=== PATIENT | female | born 1950 | race Caucasian/White ===

== ENCOUNTER → 2018-04-07 09:09 | Outpatient (CLI) | payer OTHER, SELFPAY ==
[2018-04-07 09:52] LABS: Add Manual Diff / Slide Review NO; Basophils Percent Auto 1.8 % (0-2); Eosinophils Percent Auto 3.3 % (2-4); Hematocrit 38.6 % (36-46); Lymphocytes Percent Auto 46.1 % (25-40); Mean Corpuscular HGB Conc 33.6 % (30-36); Mean Corpuscular Hemoglobin 30.6 PG (26-34); Monocytes Percent Auto 11.8 % (3-14); Neutrophils Absolute Auto 1400 /uL (3000-5900); Platelet Count 246 X10^3/uL (150-400); Red Blood Cell Count 4.24 X10^6/uL (4.0-5.2); Red Cell Distribution Width 13.4 % (11.6-14.8); White Blood Cell Count 3.7 X10^3/uL (4.5-11.0)
[2018-04-07 10:44] LABS: Alanine Aminotransferase 31 IU/L (9-52); Albumin 4.5 g/dL (3.5-5.0); Albumin Globulin Ratio 1.8 (1.0-2.8); Alkaline Phosphatase 64 U/L (38-126); Aspartate Aminotransferase 28 IU/L (14-36); Bilirubin Total 0.8 mg/dL (0.2-1.3); Blood Urea Nitrogen 21 mg/dL (7-17); Calcium 9.7 mg/dL (8.4-10.2); Carbon Dioxide 27 mmol/L (22-32); Chloride 104 mmol/L (98-107); Cholesterol 248 mg/dL (140-199); Estimated Glomerular Filt Rate > 60.0 mL/min (>60); Globulin 2.5 g/dL (1.7-4.1); Glucose 105 mg/dL (80-110); HDL Cholesterol 76 mg/dL (40-60); HEMOLYSIS < 15 (0-50); LDL Cholesterol Calculated 142 mg/dL (<100); Potassium 4.7 mmol/L (3.4-5.1); Sodium 141 mmol/L (137-145); Triglycerides 152 mg/dL (35-150)
[2018-04-07 11:06] LABS: Thyroid Stimulating Hormone 0.99 uIU/mL (0.47-4.68)
== END ==
PROVIDERS: PCP Internal Medicine; Visit Provider Internal Medicine
DX: E78.5 Hyperlipidemia, unspecified (principal); Z82.49 Family history of ischemic heart disease and other diseases of the circulatory system; Z86.39 Personal history of other endocrine, nutritional and metabolic disease
CPT/HCPCS: 36415; 80053; 80061; 84443; 85025

== ENCOUNTER → 2018-04-15 13:50 | Outpatient (CLI) | payer OTHER, SELFPAY | PROVIDERS: PCP Internal Medicine; Visit Provider Internal Medicine | DX: Z13.820 Encounter for screening for osteoporosis (principal); M85.852 Other specified disorders of bone density and structure, left thigh; Z78.0 Asymptomatic menopausal state | CPT/HCPCS: 77080 ==

== ENCOUNTER → 2018-09-05 10:49 | Outpatient (CLI) | payer OTHER, SELFPAY ==
--- NOTE | 2018-09-05 | DI.MG.S_ITS ---
BILATERAL DIGITAL SCREENING MAMMOGRAM 3D/2D WITH CAD: 09/05/2018 CLINICAL: Routine screening. Family history of breast cancer. Comparison is made to exams dated: 07/23/2017 mammogram - [facility], 08/19/2012 mammogram, and 08/26/2009 mammogram - [facility]. There are scattered fibroglandular elements in both breasts. Current study was also evaluated with a Computer Aided Detection (CAD) system. No significant masses, calcifications, or other findings are seen in either breast. There has been no significant interval change. IMPRESSION: NEGATIVE There is no mammographic evidence of malignancy. A 1 year screening mammogram is recommended. This exam was interpreted at Station ID: [id number]. NOTE: For mammograms, a report in lay terms will be sent to the patient. Approximately 15% of breast malignancies will not be visualized mammographically. In the management of a palpable breast mass, a negative mammogram must not discourage biopsy of a clinically suspicious lesion. Electronically Signed By: Loli loyola/aby:09/05/2018 11:27:17 letter sent: Normal Exam ACR BI-RADS Category 1: Negative 3341F
== END ==
PROVIDERS: PCP Internal Medicine; Visit Provider Internal Medicine
DX: Z12.31 Encounter for screening mammogram for malignant neoplasm of breast (principal); Z80.3 Family history of malignant neoplasm of breast
CPT/HCPCS: 77063; 77067

== ENCOUNTER → 2019-12-12 08:13 | Outpatient (CLI) | payer OTHER, SELFPAY ==
--- NOTE | 2019-12-12 | DI.MG.S_ITS ---
BILATERAL DIGITAL SCREENING MAMMOGRAM 3D/2D WITH CAD: 12/12/2019 CLINICAL: Routine screening. Family history of breast cancer. Comparison is made to exams dated: 09/05/2018 mammogram, 07/23/2017 mammogram - [facility], and 08/19/2012 mammogram - [facility]. There are scattered fibroglandular elements in both breasts. Current study was also evaluated with a Computer Aided Detection (CAD) system. No significant masses, calcifications, or other findings are seen in either breast. There has been no significant interval change. IMPRESSION: NEGATIVE There is no mammographic evidence of malignancy. A 1 year screening mammogram is recommended. This exam was interpreted at Station ID: [id number]. NOTE: For mammograms, a report in lay terms will be sent to the patient. Approximately 15% of breast malignancies will not be visualized mammographically. In the management of a palpable breast mass, a negative mammogram must not discourage biopsy of a clinically suspicious lesion. Electronically Signed By: Heron crain/aby:12/14/2019 07:20:15 letter sent: Normal Exam ACR BI-RADS Category 1: Negative 3341F
== END ==
PROVIDERS: PCP Internal Medicine; Referring Provider Internal Medicine; Visit Provider Internal Medicine
DX: Z12.31 Encounter for screening mammogram for malignant neoplasm of breast (principal); Z80.3 Family history of malignant neoplasm of breast
CPT/HCPCS: 77063; 77067

== ENCOUNTER → 2020-07-13 07:55 | Outpatient (CLI) | payer OTHER, SELFPAY ==
[2020-07-13 08:52] LABS: Add Manual Diff / Slide Review NO; Basophils Absolute Auto 100 /uL (0-100); Basophils Percent Auto 1.2 % (0-2); Eosinophils Absolute Auto 200 /uL (0-450); Eosinophils Percent Auto 4.3 % (2-4); Hematocrit 36.9 % (36-46); Hemoglobin 12.4 g/dL (12.0-16.0); Lymphocytes Absolute Auto 1600 /uL (1100-4500); Lymphocytes Percent Auto 39.9 % (25-40); Mean Corpuscular HGB Conc 33.7 % (30-36); Mean Corpuscular Hemoglobin 30.1 PG (26-34); Mean Corpuscular Volume 89.2 fL (80-100); Monocytes Absolute Auto 400 /uL (0-900); Monocytes Percent Auto 10.4 % (3-14); Neutrophils Absolute Auto 1800 /uL (1500-7000); Neutrophils Percent Auto 44.2 % (50-75); Platelet Count 231 X10^3/uL (150-400); Red Blood Cell Count 4.13 X10^6/uL (4.0-5.2); Red Cell Distribution Width 12.7 % (11.6-14.8); White Blood Cell Count 4.1 X10^3/uL (4.5-11.0)
[2020-07-13 09:05] LABS: Alanine Aminotransferase 24 IU/L (<35); Albumin 4.4 g/dL (3.5-5.0); Albumin Globulin Ratio 1.6 (1.0-2.8); Alkaline Phosphatase 59 U/L (38-126); Aspartate Aminotransferase 30 IU/L (14-36); BUN Creatinine Ratio 32.8 (6-22); Bilirubin Total 0.6 mg/dL (0.2-1.3); Blood Urea Nitrogen 22 mg/dL (7-17); Calcium 9.7 mg/dL (8.4-10.2); Carbon Dioxide 31 mmol/L (22-32); Chloride 104 mmol/L (98-107); Cholesterol 232 mg/dL (140-199); Estimated Glomerular Filt Rate > 60.0 mL/min (>60); Globulin 2.7 g/dL (1.7-4.1); Glucose 111 mg/dL (80-110); HDL Cholesterol 60 mg/dL (40-60); HEMOLYSIS < 15 (0-50); LDL Cholesterol Calculated 146 mg/dL (<100); Potassium 4.2 mmol/L (3.4-5.1); Sodium 135 mmol/L (137-145); Total Protein 7.1 g/dL (6.3-8.2); Triglycerides 132 mg/dL (35-150)
[2020-07-13 09:20] LABS: Vitamin D 25 Hydroxy (D3) 40.8 ng/mL (30.0-100.0)
[2020-07-15 14:27] LABS: Hemoglobin A1C% w Est Avg Glu 5.3 % (4.0-6.0)
== END ==
PROVIDERS: PCP Physician Assistant; Referring Provider Physician Assistant; Visit Provider Physician Assistant
DX: E78.2 Mixed hyperlipidemia (principal); M85.80 Other specified disorders of bone density and structure, unspecified site
CPT/HCPCS: 36415; 80053; 80061; 82306; 83036; 85025

== ENCOUNTER 2020-12-11 09:09 | Emergency (ER) | payer OTHER, SELFPAY ==
[2020-12-11] VITALS (8 sets, daily range): BP systolic 161–196; BP diastolic 76–93; PULSE 57–85; RESP 16–28; TEMP 36.8; O2SAT 99–100
--- NOTE | 2020-12-11 09:31 | DI.RAD.S_ITS ---
PROCEDURE: XR CHEST 1V INDICATIONS: chest pain TECHNIQUE: One view of the chest was acquired. COMPARISON: None. FINDINGS: Surgical changes and devices: None. Lungs and pleura: Lungs are clear. No pleural effusions or pneumothorax. Mediastinum: Mediastinal contours appear normal. Heart size is normal. Bones and chest wall: No suspicious bony lesions. Age-appropriate bony degenerative changes are seen. Overlying soft tissues appear unremarkable. IMPRESSION: Portable chest within normal limits for age. Dictated by: Rubens Rich M.D. on 12/11/2020 at 8:40 Approved by: Rubens Rich M.D. on 12/11/2020 at 8:40
[2020-12-11 09:38] LABS: Add Manual Diff / Slide Review NO; Basophils Absolute Auto 100 /uL (0-100); Basophils Percent Auto 1.1 % (0-2); Eosinophils Absolute Auto 200 /uL (0-450); Eosinophils Percent Auto 2.6 % (2-4); Hematocrit 38.8 % (36-46); Hemoglobin 13.2 g/dL (12.0-16.0); Lymphocytes Absolute Auto 2000 /uL (1100-4500); Lymphocytes Percent Auto 32.3 % (25-40); Mean Corpuscular Hemoglobin 30.6 PG (26-34); Mean Corpuscular Volume 90.1 fL (80-100); Monocytes Absolute Auto 700 /uL (0-900); Monocytes Percent Auto 11.2 % (3-14); Neutrophils Absolute Auto 3300 /uL (1500-7000); Neutrophils Percent Auto 52.8 % (50-75); Platelet Count 250 X10^3/uL (150-400); White Blood Cell Count 6.2 X10^3/uL (4.5-11.0)
[2020-12-11 09:53] LABS: Alanine Aminotransferase 22 IU/L (<35); Albumin 4.6 g/dL (3.5-5.0); Albumin Globulin Ratio 1.5 (1.0-2.8); Alkaline Phosphatase 69 U/L (38-126); Aspartate Aminotransferase 28 IU/L (14-36); BUN Creatinine Ratio 37.9 (6-22); Bilirubin Total 0.6 mg/dL (0.2-1.3); Blood Urea Nitrogen 22 mg/dL (7-17); Carbon Dioxide 26 mmol/L (22-32); Chloride 106 mmol/L (98-107); Creatine Kinase 51 U/L (30-135); Estimated Glomerular Filt Rate > 60.0 mL/min (>60); Globulin 3.1 g/dL (1.7-4.1); Glucose 110 mg/dL (80-110); HEMOLYSIS < 15 (0-50); Lipase 131 U/L (23-300); Sodium 140 mmol/L (137-145); Total Protein 7.7 g/dL (6.3-8.2)
--- NOTE | 2020-12-11 09:57 | ED_ITS ---
HPI - Chest Pain General Chief Complaint: Chest Pain Stated Complaint: blood pressure high/ chest pressure/ headache Time Seen by Provider: 12/11/20 09:21 Source: patient Mode of arrival: Ambulatory Limitations: no limitations History of Present Illness HPI narrative: Patient is a 70-year-old female who presents with elevated blood pressure and chest pain ongoing for 1 week. She states that she has been checking her blood pressure multiple times a day for last 1 week based on PCP recommendations. She has had a slight headache along with chest discomfort as well. She has noticed a steady incline in her blood pressure which prompted her to come to the emergency department this morning. She says she is having chest discomfort in the center of her chest which has been constant for 1 week that she rates at about a 3. It is nonradiating. She also has a very mild headache which she attributes to her blood pressure. At home her readings range with a systolic anywhere from 138-160 and diastolic the highest number was 104. Related Data Home Medications Medication Instructions Recorded Confirmed cetirizine 10 mg tablet 10 mg PO QDAYP PRN #0 01/01/17 03/04/18 diphenhydramine HCl 25 mg tablet 25 mg PO Q6HP PRN #0 01/01/17 03/04/18 (Benadryl Allergy) ranitidine HCl 75 mg tablet 75 mg PO QDAYP PRN #0 01/01/17 03/04/18 calcium 1,200 mg PO .QD 04/22/18 cholecalciferol (vitamin D3) 10 800 unit PO DAILY cap 04/22/18 mcg (400 unit) capsule Previous Rx's Medication Instructions Recorded hydrochlorothiazide 12.5 mg tablet 12.5 mg PO DAILY #30 tab 12/11/20 Allergies Allergy/AdvReac Type Severity Reaction Status Date / Time ibuprofen [IBUPROFEN] Allergy Severe tongue Unverified 03/04/18 10:56 swelling Review of Systems Review of Systems Narrative: GENERAL: Denies chills, fatigue, malaise, fever, sweats, travel HEENT: Denies sinus pain, ear pain, sore throat, difficulty swallowing, neck pain RESPIRATORY: Denies dyspnea, cough, wheezing, hemoptysis, sputum. CARDIOVASCULAR: see HPI GASTROINTESTINAL: Denies nausea, vomiting, abdominal pain, diarrhea, constipation, melena. : Denies dysuria, frequency, incontinence, hematuria, urinary retention, flank pain. MUSCULOSKELETAL: Denies weakness, joint pain, or bony pain SKIN: No rash, no erythema, no pruritus NEUROLOGIC: Denies weakness, dizziness, headache, numbness, change in speech, confusion PSYCHIATRIC: No concerning psychosocial issues. 12 point review of systems is negative except for those stated above and HPI Patient History Medical History (Updated 12/11/20 @ 11:00 by Jaja Farfan DO) BCC (basal cell carcinoma of skin) (2011) Chicken pox (1962) Colon polyps Hayfever (1959) Hemorrhoids (1985) Hyperlipidemia (2013) Lumbar spine pain (1993) Mumps (1962) Severe allergic reaction (05/26/14) Sleep apnea (2014) Tinnitus (2015) Surgical History (Updated 02/20/18 @ 09:14 by Jacquelin Godoy) Anesthesia History of colonoscopy with polypectomy (2013) History of toe surgery (2005) Status post dilation and curettage (1990) Family History (Updated 02/20/18 @ 09:17 by Jacquelin Godoy) Brother Age: 56 High cholesterol Grandmother Depression Grandmother Hypertension CVA (cerebral vascular accident) Sister Age: 61 High cholesterol Father CVA (cerebral vascular accident) Septic joint Grandfather Alcoholism Mother Dementia Grandfather Pancreatic cancer Sister Heart disease Status post heart valve repair Social History Smoking Status: Never smoker Smoking Status: Never smoker Substance Use Type: does not use Exam Initial Vital Signs Initial Vital Signs: Vital Signs Temperature 98.3 F 12/11/20 09:27 Pulse Rate 83 12/11/20 09:27 Respiratory Rate 18 12/11/20 09:27 Blood Pressure 196/93 H 12/11/20 09:27 Pulse Oximetry 99 12/11/20 09:27 GENERAL: Well-appearing, well-nourished and in no acute distress. HEENT: Head atraumatic,EOMI, pupils reactive, face symmetric, moist mucous membranes CARDIOVASCULAR: Regular rate and rhythm without murmurs, rubs or gallops. RESPIRATORY: Breath sounds equal bilaterally, no wheezes rales or rhonchi. ABDOMEN: Soft, nontender. Normoactive bowel sounds all 4 quadrants. No guarding or rebound. EXTREMITIES: Normal range of motion, no clubbing or edema. Neurovascularly intact NEUROLOGICAL: Alert and oriented x4.Normal gait and speech. SKIN: Warm, dry, no laceration, no petechiae, no rashes or lesions. Course Orders Ordered: ED Orders 12/11/20 09:20 Complete Blood Count AUTO DIFF Stat Comprehensive Metabolic Panel Stat Lipase Stat Troponin & CK Cardiac Panel Stat 12/11/20 09:31 XR chest 1V Stat Vital Signs Vital signs: Vital Signs - 8 hr 12/11/20 11:57 Pulse Rate 74 Respiratory Rate 18 Blood Pressure 180/80 H Pulse Oximetry 99 MDM - Chest Pain Lab Data Result diagrams: 12/11/20 09:20 12/11/20 09:20 Labs: Lab Results 12/11/20 12/11/20 Range/Units 09:20 09:20 WBC 6.2 (4.5-11.0) X10^3/uL RBC 4.30 (4.0-5.2) X10^6/uL Hgb 13.2 (12.0-16.0) g/dL Hct 38.8 (36-46) % MCV 90.1 (80-100) fL MCH 30.6 (26-34) PG MCHC 34.0 (30-36) % RDW 13.0 (11.6-14.8) % Plt Count 250 (150-400) X10^3/uL Neut % (Auto) 52.8 (50-75) % Lymph % (Auto) 32.3 (25-40) % [place] % (Auto) 11.2 (3-14) % Eos % (Auto) 2.6 (2-4) % Baso % (Auto) 1.1 (0-2) % Neut # (Auto) 3300 (8795-3371) /uL Lymph # (Auto) 2000 (9262-2010) /uL [place] # (Auto) 700 (0-900) /uL Eos # (Auto) 200 (0-450) /uL Baso # (Auto) 100 (0-100) /uL Sodium 140 (137-145) mmol/L Potassium 4.0 (3.4-5.1) mmol/L Chloride 106 (98-107) mmol/L Carbon Dioxide 26 (22-32) mmol/L BUN 22 H (7-17) mg/dL Creatinine 0.58 (0.52-1.04) mg/dL Estimated GFR > 60.0 (>60) mL/min BUN/Creatinine Ratio 37.9 H (6-22) Glucose 110 (80-110) mg/dL Calcium 10.0 (8.4-10.2) mg/dL Total Bilirubin 0.6 (0.2-1.3) mg/dL AST 28 (14-36) IU/L ALT 22 (<35) IU/L Alkaline Phosphatase 69 (38-126) U/L Total Creatine Kinase 51 (30-135) U/L CK-MB (CK-2) TNP CK-MB (CK-2) Rel Index TNP Troponin I < 0.012 (0.01-0.034) ng/mL Total Protein 7.7 (6.3-8.2) g/dL Albumin 4.6 (3.5-5.0) g/dL Globulin 3.1 (1.7-4.1) g/dL Albumin/Globulin Ratio 1.5 (1.0-2.8) Lipase 131 (23-300) U/L Urine Dip Bedside Urine Glucose Negative Bedside Urine Bilirubin - Negative Bedside Urine Ketone - Negative Urine Specific [place] 1.015 Bedside Urine Occult Blood - Negative Bedside Urine pH 6.0 Bedside Urine Protein - Negative Bedside Urine Urobilinogen - Negative Bedside Urine Nitrite - Negative Bedside Urine Leukocytes - Negative Esterase Imaging Data Chest x-ray: Radiologist's Impression: PROCEDURE: XR CHEST 1V INDICATIONS: chest pain TECHNIQUE: One view of the chest was acquired. COMPARISON: None. FINDINGS: Surgical changes and devices: None. Lungs and pleura: Lungs are clear. No pleural effusions or pneumothorax. Mediastinum: Mediastinal contours appear normal. Heart size is normal. Bones and chest wall: No suspicious bony lesions. Age-appropriate bony degenerative changes are seen. Overlying soft tissues appear unremarkable. IMPRESSION: Portable chest within normal limits for age. Dictated by: Rubens Rich M.D. on 12/11/2020 at 8:40 ECG Data Interpretation: Rhythm rate 79 IA interval 156 QRS [address] changes or T-wave inversion MDM Narrative Medical decision making narrative: Patient initially presented with elevated blood pressure she slightly symptomatic with some ongoing chest pressure and headache. Both she says are extremely mild and have been ongoing for at least 1 week or more. She has no focal deficits with her headache. She has no shortness of breath. Blood work is overall reassuring. However with patient's ongoing symptoms for 1 week I think it is reasonable to start her on blood pressure medication. Will start her on low-dose hydrochlorothiazide she has a PCP she can follow-up with. Discharge Plan Departure Patient Disposition: Home Clinical Impression: Hypertension Instructions: Essential Hypertension Activity Restrictions/Additional Instructions: *You have been diagnosed with high blood pressure *What to do: I recommend taking her blood pressure once daily. Because you are having some mild symptoms I will start you on a blood pressure medication. Please be sure to follow-up your primary care provider and continue to record her finding *Continue to take medications as directed Hydrochlorothiazide 12.5mg once daily--> SENT TO [facility] *Follow up with your primary care provider in 2-3 days *Return to ER if you should have increasing chest pain, headache, blood pressure greater than 185/100 or any new, worsening or concerning symptoms Prescriptions: New hydrochlorothiazide 12.5 mg tablet 12.5 mg PO DAILY Qty: 30 RF: 0 No Action cetirizine 10 MG tablet 10 mg PO QDAYP PRNQty: 0 RF: 0 ranitidine HCl 75 MG tablet 75 mg PO QDAYP PRNQty: 0 RF: 0 diphenhydramine HCl [Benadryl Allergy] 25 MG tablet 25 mg PO Q6HP PRNQty: 0 RF: 0 cholecalciferol (vitamin D3) 400 unit capsule 800 unit PO DAILY RF: 0 calcium 1,200 mg PO .QD RF: 0 Referrals: Dorina Perera PA-C [Primary Care Provider] -
[2020-12-11 10:05] LABS: Troponin I < 0.012 ng/mL (0.01-0.034)
== END 2020-12-11 11:57 | disposition home or self-care (01) ==
PROVIDERS: Emergency Provider Emergency Medicine; PCP Physician Assistant
DX: I10 Essential (primary) hypertension (principal); R07.9 Chest pain, unspecified; R51.9 Headache, unspecified
CPT/HCPCS: 36415; 71045; 80053; 81003; 82550; 83690; 84484; 85025; 93005; 99283; 99284

== ENCOUNTER → 2021-01-23 08:38 | Outpatient (CLI) | payer OTHER, SELFPAY ==
[2021-01-23 12:58] LABS: COVID19 -Nasal RAPID Negative (Negative)
== END ==
PROVIDERS: PCP Physician Assistant; Visit Provider Nurse Practitioner Family
DX: Z01.812 Encounter for preprocedural laboratory examination (principal); Z20.822 Contact with and (suspected) exposure to COVID-19
CPT/HCPCS: 87635

== ENCOUNTER 2021-01-25 12:20 | Day surgery (SDC) | payer OTHER, SELFPAY ==
[2021-01-25 12:35] VITALS: BP 153/83; PULSE 71; RESP 18; TEMP 36.4; O2SAT 99; BMI 25.0
--- NOTE | 2021-01-25 12:43 | PM.HP.1 ---
History of Present Illness History of Present Illness Date Patient Seen: 01/25/21 Time Patient Seen: 12:44 Chief complaint: SDC Narrative: Personal history of colon polyps Patient History Medical History BCC (basal cell carcinoma of skin) (2011) Chicken pox (1962) Colon polyps Hayfever (1959) Hemorrhoids (1985) Hyperlipidemia (2013) Lumbar spine pain (1993) Mumps (1962) Severe allergic reaction (05/26/14) Sleep apnea (2014) Tinnitus (2015) Surgical History Anesthesia History of colonoscopy with polypectomy (2013) History of toe surgery (2005) Status post dilation and curettage (1990) Family & Social History Family History Brother Age: 57 High cholesterol Grandmother Depression Grandmother Hypertension CVA (cerebral vascular accident) Sister Age: 62 High cholesterol Father CVA (cerebral vascular accident) Septic joint Grandfather Alcoholism Mother Dementia Grandfather Pancreatic cancer Sister Heart disease Status post heart valve repair Tobacco & Substance use: Smoking Status Never smoker Substance Use Type does not use Meds Home Medications and Allergies Home Medications Medication Instructions Recorded Confirmed Type cetirizine 10 mg tablet 10 mg PO QDAYP PRN #0 01/01/17 01/11/21 History diphenhydramine HCl 25 mg tablet 25 mg PO Q6HP PRN #0 01/01/17 01/11/21 History (Benadryl Allergy) ranitidine HCl 75 mg tablet 75 mg PO QDAYP PRN #0 01/01/17 01/11/21 History calcium 1,200 mg PO .QD 04/22/18 01/11/21 History cholecalciferol (vitamin D3) 10 800 unit PO DAILY cap 04/22/18 01/11/21 History mcg (400 unit) capsule hydrochlorothiazide 12.5 mg tablet 12.5 mg PO DAILY #30 tab 12/11/20 01/11/21 Rx Allergies Allergy/AdvReac Type Severity Reaction Status Date / Time ibuprofen [IBUPROFEN] Allergy Severe tongue Verified 01/11/21 09:04 swelling Review of Systems Review of Systems ROS: Yes All systems reviewed with the patient and are negative except as otherwise documented Exam Const General: cooperative and comfortable Orientation: alert HENMT Head: normocephalic Ears: external ears normal Nose: external nose normal Face and sinus: normal facial exam Mouth: oral mucosae normal Eyes General: appearance normal, both eyes and all related structures Neck Neck: normal visual inspection Chest Chest: normal inspection of the chest Resp Effort & Inspection: normal respiratory effort Auscultation: clear to auscultation bilaterally Cardio Rate: regular rate Rhythm: regular rhythm Heart Sounds: no murmurs GI Inspection: normal to inspection Palpation: soft and No tender Auscultation: normal bowel sounds Skin General: no rashes or lesions noted and No jaundice Neuro General: patient alert and moves all extremities Cognition: normal cognition Speech: speech normal Extrem General: no pedal edema Psych Appearance: grossly normal Assessment & Plan Assessment & Plan narrative: Personal history of colon polyps. Colonoscopy is planned for today. Time Spent With Patient Critical Care time: I spent a total of [] minutes of critical care time on this patient's care today; this time is exclusive of procedural time.
--- NOTE | 2021-01-25 12:45 | PM.PREOP ---
Pre-operative Note COVID-19 COVID-19 status: Negative Result date/Date tested (Pos, Neg/Pending): 01/23/21 Interval Note History & Physical reviewed/Exam performed by Physician: Yes Changes to H&P: No H&P completed within 30 days and has changed as indicated here:: Today ASA Class (for procedural sedation): II
[2021-01-25] MEDS: SODIUM CHLORIDE 0.9% 1,000 ML 84 ML IV (13:06)
--- NOTE | 2021-01-25 13:36 | PM.OP.ENDO ---
Operative Date/Time/Diagnoses Date of procedure: 01/25/21 Time of procedure: 13:36 Pre-op diagnosis: Personal history of colon polyps Post-op diagnosis: same Procedure & Clinicians Study performed: Colonoscopy Same procedure as scheduled: Yes Indications: Personal history of colon polyps Surgeon: Alexandru Delong Procedure Notes SCOAP/Timeout: Done Procedure in detail: After the risks and benefits were explained, written and verbal informed consent was obtained. The patient was brought into the procedure room and placed into the left lateral decubitus position. See nurse help desk consultant notes Digital rectal examination was accomplished. The scope was introduced into the patient and advanced under direct visualization to the cecum as identified by the appendiceal orifice and ileocecal valve. The scope was slowly withdrawn to carefully examine the mucosa for any defects or lesions. Comprehensive imaging was accomplished throughout the rectum including the dentate line. The colon was decompressed, the scope was then removed from the patient who tolerated the procedure well. Scope withdrawal time: 8 minutes Sedation minutes: 18 Specimen(s): none sent Complications: none Impression: There were diverticula scattered throughout the sigmoid descending transverse and even into the ascending colon. No significant polyps mass lesions or inflammatory features identified throughout. Grade 1 internal hemorrhoids were noted on direct views and digital exam. Endoscopic diagnosis 1. Diverticulosis 2. Grade 1 internal hemorrhoids Post-procedure Recommendations: Colonscopy in 5 years Plan for aftercare: Repeat colonoscopy 5 years time considering personal history of colon polyps. Disposition: PACU
[2021-01-25 13:38] VITALS: BP 117/71; PULSE 64; RESP 15; TEMP 37; O2SAT 99
[2021-01-25 13:43] VITALS: BP 129/73; PULSE 58; RESP 14; O2SAT 99
[2021-01-25 13:48] VITALS: BP 136/77; PULSE 55; RESP 14; O2SAT 99
[2021-01-25 13:53] VITALS: BP 145/74; PULSE 51; RESP 13; O2SAT 100
[2021-01-25 13:56] VITALS: BP 140/72; PULSE 54; RESP 16; TEMP 36.8; O2SAT 99
== END 2021-01-25 14:15 | disposition home or self-care (01) ==
PROVIDERS: PCP Physician Assistant; Referring Provider Internal Medicine Gastroenterology; Visit Provider Internal Medicine Gastroenterology
PROC: 0DJD8ZZ Inspection of Lower Intestinal Tract, Via Natural or Artificial Opening Endoscopic (ICD-10-PCS; CPT 45378; principal; 2021-01-25 13:30)
DX: Z12.11 Encounter for screening for malignant neoplasm of colon (principal); Z86.010 Personal history of colon polyps; E78.5 Hyperlipidemia, unspecified; G47.33 Obstructive sleep apnea (adult) (pediatric); Z85.828 Personal history of other malignant neoplasm of skin; K57.30 Diverticulosis of large intestine without perforation or abscess without bleeding; K64.0 First degree hemorrhoids
CPT/HCPCS: 45378

== ENCOUNTER → 2022-02-13 08:31 | Outpatient (CLI) | payer OTHER, SELFPAY ==
--- NOTE | 2022-02-13 08:33 | DI.MRI.S_ITS ---
PROCEDURE: MR KNEE RT WO CON INDICATIONS: CHRONIC RIGHT KNEE PAIN TECHNIQUE: Noncontrast sagittal PD fast spin echo and T2 fast spin echo with fat saturation, sagittal 3-D FLASH with fat saturation; coronal T1 spin echo and PD fast spin echo with fat saturation, and axial PD fast spin echo with fat saturation through the knee. COMPARISON: None. FINDINGS: Image quality: Excellent. Menisci: There is complex tear of the medial meniscus involving the body and posterior horn. There are several small meniscal cysts adjacent to the posterior horn. The lateral meniscus demonstrates normal morphology and internal signal. The meniscal root ligaments appear intact. Cruciate ligaments: There is chronic partial tear or intrasubstance degeneration of the proximal fibers of anterior cruciate ligament. The posterior cruciate ligament is intact. Medial structures: The medial collateral ligament appears intact. The semimembranosus tendon insertions and meniscocapsular junction appear intact. Visualized portions of the pes anserinus tendons appear normal. No abnormal bursal fluid. Lateral structures: The lateral collateral ligament, long and short heads of the biceps femoris tendon appear intact. The popliteus tendon appears normal. Iliotibial band appears normal. Anterior structures: The quadriceps and patellar tendons appear intact. Patellar alignment is normal. No femoral trochlear dysplasia or ventral trochlear prominence. No edema in the infrapatellar fat pad. There is nonspecific infrapatellar soft tissue swelling. Bones and cartilage: No bone marrow contusions or fractures. Tricompartmental cartilage thinning and fibrillation, most pronounced in the patellofemoral joint. Joint space: There is small knee joint effusion. Small Bay's cyst. Normal appearing synovial plicae are incidentally noted. A 0.6 cm intra-articular body is noted in the posterior medial aspect of the knee joint within the intercondylar notch (series 6 image 19; series 9 image 21) IMPRESSION: 1. Complex tear of the body and posterior horn of the medial meniscus. 2. 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 3. Tricompartmental cartilage loss, most pronounced in the patellofemoral joint. 4. A 0.6 cm intra-articular body in the posterior medial aspect of the knee joint. 5. Small knee joint effusion. 6. Small Bay's cyst. Dictated by: Capo Luna M.D. on 02/13/2022 at 11:15 Approved by: Capo Luna M.D. on 02/13/2022 at 11:25
== END ==
PROVIDERS: PCP Physician Assistant; Visit Provider Physician Assistant
DX: S83.231A Complex tear of medial meniscus, current injury, right knee, initial encounter (principal); M71.21 Synovial cyst of popliteal space [Baker], right knee; M25.461 Effusion, right knee; M25.561 Pain in right knee; G89.29 Other chronic pain
CPT/HCPCS: 73721

== ENCOUNTER → 2022-04-23 14:32 | Outpatient (CLI) | payer OTHER, SELFPAY ==
--- NOTE | 2022-04-23 | DI.MG.S_ITS ---
BILATERAL DIGITAL SCREENING MAMMOGRAM 3D/2D WITH CAD: 04/23/2022 CLINICAL: Routine screening. Family history of breast cancer. Comparison is made to exams dated: 12/12/2019 mammogram, 09/05/2018 mammogram, 07/23/2017 mammogram - [facility], and 08/19/2012 mammogram - [facility]. There are scattered areas of fibroglandular density in both breasts (category b / 25%-50% glandular tissue). Current study was also evaluated with a Computer Aided Detection (CAD) system. No significant masses, calcifications, or other findings are seen in either breast. There has been no significant interval change. IMPRESSION: NEGATIVE There is no mammographic evidence of malignancy. A 1 year screening mammogram is recommended. Based on the Tyrer Cuzick model (a risk assessment model) the patient's lifetime risk is 8.6% and her 10 year risk is 5.1%. According to the ACR, ACS, and NCCN guidelines, an annual breast MRI exam along with mammogram is recommended if the patient's lifetime risk is 20% or greater. This exam was interpreted at Station ID: [id number]. NOTE: For mammograms, a report in lay terms will be sent to the patient. Approximately 15% of breast malignancies will not be visualized mammographically. In the management of a palpable breast mass, a negative mammogram must not discourage biopsy of a clinically suspicious lesion. Electronically Signed By: Eddie horne/aby:04/23/2022 16:41:53 letter sent: Normal Exam ACR BI-RADS Category 1: Negative 3341F
== END ==
PROVIDERS: PCP Physician Assistant; Referring Provider Physician Assistant; Visit Provider Physician Assistant
DX: Z12.31 Encounter for screening mammogram for malignant neoplasm of breast (principal); Z80.3 Family history of malignant neoplasm of breast
CPT/HCPCS: 77063; 77067

== ENCOUNTER → 2022-12-05 10:20 | Outpatient (CLI) | payer MEDICARE, SELFPAY ==
[2022-12-05 11:09] LABS: Hematocrit 39.2 % (36-46); Hemoglobin 13.5 g/dL (12.0-16.0); Mean Corpuscular HGB Conc 34.5 % (30-36); Mean Corpuscular Hemoglobin 30.6 PG (26-34); Mean Corpuscular Volume 88.8 fL (80-100); Platelet Count 253 X10^3/uL (150-400); Red Blood Cell Count 4.41 X10^6/uL (4.0-5.2); Red Cell Distribution Width 13.4 % (11.6-14.8); White Blood Cell Count 5.3 X10^3/uL (4.5-11.0)
[2022-12-05 11:39] LABS: Alanine Aminotransferase 26 IU/L (<35); Albumin 4.5 g/dL (3.5-5.0); Albumin Globulin Ratio 1.6 (1.0-2.8); Alkaline Phosphatase 72 U/L (38-126); Aspartate Aminotransferase 29 IU/L (14-36); BUN Creatinine Ratio 28.4 (6-22); Bilirubin Total 0.6 mg/dL (0.2-1.3); Blood Urea Nitrogen 19 mg/dL (7-17); Calcium 9.8 mg/dL (8.4-10.2); Carbon Dioxide 32 mmol/L (22-32); Chloride 100 mmol/L (98-107); Cholesterol 274 mg/dL (140-199); Estimated Glomerular Filt Rate > 60 mL/min (>60); Globulin 2.8 g/dL (1.7-4.1); Glucose 101 mg/dL (80-110); HDL Cholesterol 64 mg/dL (40-60); HEMOLYSIS < 15 (0-50); LDL Cholesterol Calculated 172 mg/dL (<100); Potassium 4.2 mmol/L (3.4-5.1); Sodium 137 mmol/L (137-145); Total Protein 7.3 g/dL (6.3-8.2); Triglycerides 192 mg/dL (35-150)
[2022-12-05 12:03] LABS: Vitamin D 25 Hydroxy (D3) 39.4 ng/mL (30.0-100.0)
[2022-12-05 12:07] LABS: TSH w/ Reflex to FT4 0.99 uIU/mL (0.47-4.68)
== END ==
PROVIDERS: PCP Internal Medicine; Referring Provider Internal Medicine; Visit Provider Internal Medicine
DX: E55.9 Vitamin D deficiency, unspecified (principal); E78.2 Mixed hyperlipidemia; I10 Essential (primary) hypertension
CPT/HCPCS: 36415; 80053; 80061; 82306; 84443; 85027

== ENCOUNTER → 2022-12-19 | Outpatient (CLI) | payer MEDICARE, SELFPAY ==
--- NOTE | 2022-12-19 09:43 | DI.RAD.S_ITS ---
Bone Density Report Name: JOSEFINA TUCKER Age: 72 Sex: Female Ethnicity: White Date of : 1950 Indication: postmenopausal; screening for osteoporosis; Referring Provider: MAME MATTHEWS Study: Bone densitometry was performed. Exam Date: December 19, 2022 Accession number: [id number] Bone Density: Region BMD T-score Z-score Classification AP Spine(L1-L4) 0.982 -0.6 1.5 Normal Femoral Neck (Left) 0.665 -1.7 0.2 Osteopenia Total Hip (Left) 0.894 -0.4 1.1 Normal Femoral Neck (Right) 0.620 -2.1 -0.2 Osteopenia Total Hip (Right) 0.784 -1.3 0.2 Osteopenia Total Hip Mean 0.839 -0.9 0.7 Normal World Health Organization criteria for BMD impression classify patients as: Normal (T-score at or above -1.0), Osteopenia (T-score between -1.0 and -2.5), or Osteoporosis (T-score at or below -2.5). 10-year Fracture Risk(1): Major Osteoporotic Fracture 12% Hip Fracture 2.4% Reported Risk Factors: [place] (), Neck BMD=0.620, BMI=26.6 (1) FRAX(R) Version 3.08. Fracture probability calculated for an untreated patient. Fracture probability may be lower if the patient has received treatment. Previous Exams: -- Region Exam Age BMD T-score BMD Change BMD Change Date g/cm2 vs Baseline vs Previous -- AP Spine (L1-L4) 12/19/2022 72 0.982 -0.6 0.005 (0.6%)# 0.005 (0.6%)# 04/15/2018 67 0.977 -0.6 Total Hip(Left) 12/19/2022 72 0.894 -0.4 -0.019 (-2.0%)# -0.019 (-2.0%)# 04/15/2018 67 0.912 -0.2 Total Hip(Right) 12/19/2022 72 0.784 -1.3 -0.032 (-4.0%)# -0.032 (-4.0%)# 04/15/2018 67 0.816 -1.0 -- *Denotes significance at 95% confidence level, LSC for AP Spine = 0.022 g/cm2, LSC for Total Hip = 0.027 g/cm2 # Denotes dissimilar scan types or analysis methods Impression: The patient has low bone mass, based on the Right Femoral Neck T-score. The patient has an estimated ten-year risk of hip fracture of 2.4% and an estimated ten-year risk of major fracture of 12%, based on the WHO FRAX algorithm. No significant bone loss was observed. Discussion: BONE DENSITY IS LOW AT ONE OR MORE SKELETAL SITES. This patient's lowest T-score is low at one or more skeletal sites. It meets the World Health Organization's (WHO) criteria for low bone mass (T-score between -1.0 and -2.5). The patient's 10-year risk of fracture as calculated by FRAX is less than the threshold where pharmacological therapy is recommended by the National Osteoporosis Foundation (NOF). However, all treatment decisions require clinical judgment and consideration of individual patient factors, including patient preferences, comorbidities, previous drug use, risk factors not captured in the FRAX model (e.g., frailty, falls, vitamin D deficiency, increased bone turnover, interval significant decline in bone density) and possible under or overestimation of fracture risk by FRAX. The patient should follow a healthful lifestyle (good nutrition with adequate calcium and vitamin D, and appropriate weight-bearing exercise). Follow-Up: Consider repeating this study in 2 to 3 years to reassess this patient's status, or sooner if there is some new clinical indication. Reported by: AYSHA LYNCH M.D. on 12/19/2022 10:07:00 AM.
== END ==
PROVIDERS: PCP Internal Medicine; Referring Provider Internal Medicine; Visit Provider Internal Medicine
DX: Z78.0 Asymptomatic menopausal state (principal); Z13.820 Encounter for screening for osteoporosis; M85.851 Other specified disorders of bone density and structure, right thigh
CPT/HCPCS: 77080

== ENCOUNTER → 2023-01-21 13:59 | Outpatient (CLI) | payer MEDICARE, SELFPAY ==
[2023-01-21 15:19] LABS: Influenza A - CEPHEID Flu A NEGATIVE (NEGATIVE); Influenza B - CEPHEID Flu B NEGATIVE (NEGATIVE); Respiratory Syncytial Virus Negative (Negative)
[2023-01-21 15:21] LABS: COVID-19 CEPHEID 4-PLEX PCR Negative (Negative)
== END ==
PROVIDERS: PCP Internal Medicine; Visit Provider Student in an Organized Health Care Education/Training Program
DX: R52 Pain, unspecified (principal)
CPT/HCPCS: 0241U

== ENCOUNTER → 2023-04-01 08:30 | Outpatient (CLI) | payer MEDICARE, SELFPAY ==
[2023-04-01 10:36] LABS: Aspartate Aminotransferase 34 IU/L (14-36); Cholesterol 174 mg/dL (140-199); HDL Cholesterol 78 mg/dL (40-60); LDL Cholesterol Calculated 64 mg/dL (<100); Triglycerides 159 mg/dL (35-150)
== END ==
PROVIDERS: PCP Internal Medicine; Referring Provider Internal Medicine; Visit Provider Internal Medicine
DX: E78.2 Mixed hyperlipidemia (principal); I10 Essential (primary) hypertension
CPT/HCPCS: 36415; 80061; 84450

== ENCOUNTER → 2023-06-06 11:01 | Outpatient (CLI) | payer OTHER, SELFPAY ==
--- NOTE | 2023-06-06 11:03 | DI.MG.S_ITS ---
BILATERAL DIGITAL SCREENING MAMMOGRAM 3D/2D WITH CAD: 06/06/2023 CLINICAL: Routine screening. Family history of breast cancer. Comparison is made to exams dated: 04/23/2022 mammogram, 12/12/2019 mammogram, and 09/05/2018 mammogram - [facility]. There are scattered areas of fibroglandular density in both breasts (category b / 25%-50% glandular tissue). Current study was also evaluated with a Computer Aided Detection (CAD) system. No significant masses, calcifications, or other findings are seen in either breast. There has been no significant interval change. IMPRESSION: NEGATIVE There is no mammographic evidence of malignancy. A 1 year screening mammogram is recommended. Based on the Tyrer Cuzick model (a risk assessment model) the patient's lifetime risk is 8.2% and her 10 year risk is 5.2%. According to the ACR, ACS, and NCCN guidelines, an annual breast MRI exam along with mammogram is recommended if the patient's lifetime risk is 20% or greater. This exam was interpreted at Station ID: [id number]. NOTE: For mammograms, a report in lay terms will be sent to the patient. Approximately 15% of breast malignancies will not be visualized mammographically. In the management of a palpable breast mass, a negative mammogram must not discourage biopsy of a clinically suspicious lesion. Electronically Signed By: Joe hull/aby:06/06/2023 16:16:04 letter sent: Normal Exam ACR BI-RADS Category 1: Negative [id number]
== END ==
PROVIDERS: PCP Internal Medicine; Referring Provider Internal Medicine; Visit Provider Internal Medicine
DX: Z12.31 Encounter for screening mammogram for malignant neoplasm of breast (principal); Z80.3 Family history of malignant neoplasm of breast; R92.323 Mammographic fibroglandular density, bilateral breasts
CPT/HCPCS: 77063; 77067

== ENCOUNTER → 2023-07-21 14:32 | Outpatient (CLI) | payer OTHER, SELFPAY ==
--- NOTE | 2023-07-21 14:35 | DI.RAD.S_ITS ---
PROCEDURE: XR CHEST 2V INDICATIONS: Cough, dyspnea TECHNIQUE: 2 views of the chest were acquired. COMPARISON: [facility], CR, XR CHEST 1V, 12/11/2020, 9:33. FINDINGS: Surgical changes and devices: None. Lungs and pleura: Lungs are clear. No pleural effusions or pneumothorax. Mediastinum: Mediastinal contours are normal. Heart size is normal. Bones and chest wall: No suspicious bony abnormalities. Soft tissues appear unremarkable. IMPRESSION: No acute cardiopulmonary abnormality is seen. Dictated by: Jo-Ann Mejía M.D. on 07/21/2023 at 15:19 Approved by: Jo-Ann Mejía M.D. on 07/21/2023 at 15:19
== END ==
LOC: RAD 14:34
PROVIDERS: PCP Internal Medicine; Referring Provider Physician Assistant Surgical; Visit Provider Physician Assistant Surgical
DX: R05.9 Cough, unspecified (principal); R06.00 Dyspnea, unspecified
CPT/HCPCS: 71046

== ENCOUNTER → 2023-10-29 13:39 | Outpatient (CLI) | payer MEDICARE, SELFPAY ==
[2023-10-29 15:20] LABS: HEMOLYSIS < 15 (0-50); Iron 121 ug/dL (37-170)
[2023-10-29 15:27] LABS: C-Reactive Protein Quant < 0.5 mg/dL (<1.0)
[2023-10-29 15:34] LABS: Percent Iron Saturation 40 % (15-50); Total Iron Binding Capacity 304 ug/dL (265-497); Transferrin 256 mg/dL (206-381)
[2023-10-29 16:00] LABS: Ferritin 88 ng/mL (11-264)
== END ==
PROVIDERS: PCP Internal Medicine; Referring Provider Pediatrics; Visit Provider Pediatrics
DX: G25.81 Restless legs syndrome (principal); D50.9 Iron deficiency anemia, unspecified
CPT/HCPCS: 36415; 82728; 83540; 83550; 86140

== ENCOUNTER → 2024-04-07 08:49 | Outpatient (CLI) | payer MEDICARE, SELFPAY ==
[2024-04-07 10:19] LABS: HEMOLYSIS < 15 (0-50); Iron 102 ug/dL (37-170)
[2024-04-07 10:34] LABS: Percent Iron Saturation 36 % (15-50); Total Iron Binding Capacity 280 ug/dL (265-497); Transferrin 260 mg/dL (206-381)
[2024-04-07 10:56] LABS: Ferritin 107 ng/mL (11-264)
== END ==
PROVIDERS: PCP Internal Medicine; Referring Provider Nurse Practitioner; Visit Provider Nurse Practitioner
DX: E83.10 Disorder of iron metabolism, unspecified (principal); G25.81 Restless legs syndrome
CPT/HCPCS: 36415; 82728; 83540; 83550

== ENCOUNTER → 2024-07-23 17:06 | Outpatient (CLI) | payer MEDICARE, OTHER, SELFPAY ==
--- NOTE | 2024-07-23 17:08 | DI.MG.S_ITS ---
MM screening mammo BI: 07/23/2024. BI-RADS: 1 CLINICAL: 73-year old female for bilateral screening mammogram. Tyrer-Cuzick lifetime risk of 9.8%. Current reported family history of breast cancer: mother and paternal aunt. PRIOR EXAMS 06/06/2023, 04/23/2022, 12/12/2019, 09/05/2018, 08/08/2017, 07/23/2017. MAMMOGRAPHY TECHNIQUE: 2D and 3D (tomosynthesis) digital mammographic views obtained, with additional images as needed for full coverage. Current study was also evaluated with a Computer Aided Detection (CAD) system. DENSITY B. There are scattered areas of fibroglandular density. MAMMOGRAPHY FINDINGS Bilateral: No suspicious mass, asymmetry, microcalcification, or other abnormality seen. IMPRESSION: * No evidence of malignancy. RECOMMENDATIONS Bilateral * Annual screening mammography. OVERALL ASSESSMENT CATEGORY BI-RADS-1: Negative. The [employer] recommends annual screening mammography beginning at age 40 for women with average risk of breast cancer. ELECTRONICALLY SIGNED: Myrna Lam M.D. on 07/24/2024 at 12:06:53 PM PT Interpreting Station ID: [id number]
== END ==
PROVIDERS: PCP Internal Medicine; Referring Provider Internal Medicine; Visit Provider Internal Medicine
DX: Z12.31 Encounter for screening mammogram for malignant neoplasm of breast (principal); Z80.3 Family history of malignant neoplasm of breast
CPT/HCPCS: 77063; 77067

== ENCOUNTER → 2024-08-27 10:41 | Outpatient (CLI) | payer MEDICARE, OTHER, SELFPAY ==
[2024-08-27 11:21] LABS: Hematocrit 40.5 % (36-46); Hemoglobin 13.7 g/dL (12.0-16.0); Mean Corpuscular HGB Conc 33.9 % (30-36); Mean Corpuscular Hemoglobin 30.1 PG (26-34); Mean Corpuscular Volume 89.1 fL (80-100); Platelet Count 256 X10^3/uL (150-400); Red Blood Cell Count 4.55 X10^6/uL (4.0-5.2); Red Cell Distribution Width 13.6 % (11.6-14.8); White Blood Cell Count 7.1 X10^3/uL (4.5-11.0)
[2024-08-27 12:11] LABS: Alanine Aminotransferase 41 IU/L (<35); Alkaline Phosphatase 68 U/L (38-126); Aspartate Aminotransferase 45 IU/L (14-36); BUN Creatinine Ratio 29.1 (6-22); Bilirubin Total 0.7 mg/dL (0.2-1.3); Blood Urea Nitrogen 23 mg/dL (7-17); Calcium 10.6 mg/dL (8.4-10.2); Carbon Dioxide 30 mmol/L (22-32); Chloride 98 mmol/L (98-107); Cholesterol 189 mg/dL (140-199); Estimated Glomerular Filt Rate > 60 mL/min (>60); Globulin 2.5 g/dL (1.7-4.1); Glucose 99 mg/dL (70-99); HDL Cholesterol 88 mg/dL (40-60); HEMOLYSIS < 15 (0-50); LDL Cholesterol Calculated 67 mg/dL (<100); Potassium 4.1 mmol/L (3.4-5.1); Sodium 139 mmol/L (137-145); Total Protein 7.5 g/dL (6.3-8.2); Triglycerides 172 mg/dL (35-150)
== END ==
PROVIDERS: PCP Internal Medicine; Referring Provider Internal Medicine; Visit Provider Internal Medicine
DX: I10 Essential (primary) hypertension (principal); E78.2 Mixed hyperlipidemia
CPT/HCPCS: 36415; 80053; 80061; 85027